=== PATIENT | female | born 1980 | race Caucasian/White ===

== ENCOUNTER 2023-10-31 11:25 | Emergency (ER) | payer OTHER, SELFPAY ==
[2023-10-31 11:36] VITALS: BP 134/70; PULSE 78; RESP 20; TEMP 36.6; O2SAT 98; BMI 22.2
--- NOTE | 2023-10-31 12:40 | ED.UPPEXIN ---
HPI - Extremity Injury (Upper) General Chief Complaint: Extremity Injury, Upper Stated Complaint: Right index finger cut Time Seen by Provider: 10/31/23 12:40 Source: patient Mode of arrival: Ambulatory History of Present Illness HPI narrative: Patient is a healthy 42-year-old female who presents today with right index finger laceration. Currently camping he in a camper she was not a newspaper stand a metal newspaper scan opening the door when flow close cutting the very distal tip of her right index finger. She reports her tetanus is up-to-date on lots of bleeding but no blood thinners. Recently had a cochlear implant done 2 days ago. 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 Related Data Allergies Allergy/AdvReac Type Severity Reaction Status Date / Time Sulfa (Sulfonamide AdvReac Hives Verified 10/31/23 11:36 Antibiotics) Patient History Social History Smoking Status: Never smoker Smoking Status: Never smoker alcohol intake frequency: holidays/special occasions only Substance Use Type: does not use Exam Initial Vital Signs Initial Vital Signs: Vital Signs Temperature 98 F 10/31/23 11:36 Pulse Rate 78 10/31/23 11:36 Respiratory Rate 20 10/31/23 11:36 Blood Pressure 134/70 10/31/23 11:36 Pulse Oximetry 98 10/31/23 11:36 Oxygen Delivery Method Room Air 10/31/23 11:36 GENERAL: Alert well-appearing 42-year-old female CARDIOVASCULAR: peripheral pulses in tact, cap refill <2 sec RESPIRATORY: No respiratory distress, speaks in full sentences without difficulty EXTREMITIES: Normal range of motion, no clubbing or edema. Neurovascularly intact NEUROLOGICAL: Cranial nerves II through XII grossly intact. Normal gait and speech. SKIN: Right distal tip finger flap like laceration no nail bed involvement good skin approximation 1 cm Course Vital Signs Vital signs: Vital Signs - 8 hr 10/31/23 11:36 10/31/23 13:11 Temperature 98 F Pulse Rate 78 52 L Respiratory Rate 20 18 Blood Pressure 134/70 124/59 L Pulse Oximetry 98 100 Oxygen Delivery Method Room Air Room Air MDM - Extremity Injury (Upper) MDM Narrative Medical decision making narrative: 42-year-old female right index finger distal tip presents today with flap like laceration, no need for stitches. Does not need x-ray or imaging. Tetanus is up to date. Dressing placed by nursing staff Discharge Plan Departure Patient Disposition: Home Clinical Impression: Laceration of finger, index Instructions: DI for Laceration Repair Activity Restrictions/Additional Instructions: *You have been diagnosed with are index finger laceration *What to do: Keep finger clean and dry with soap and water. Use bandage *Continue to take medications as directed *Follow up with your primary care provider in 2-3 days or call [phone] *Return to ER if you should have redness swelling drainage or any new, worsening or concerning symptoms Stand Alone Forms: Patient Portal/API
[2023-10-31 13:11] VITALS: BP 124/59; PULSE 52; RESP 18; O2SAT 100
== END 2023-10-31 13:10 | disposition home or self-care (01) ==
PROVIDERS: Emergency Provider Emergency Medicine
DX: S61.210A Laceration without foreign body of right index finger without damage to nail, initial encounter (principal); X58.XXXA Exposure to other specified factors, initial encounter
CPT/HCPCS: 99283